=== PATIENT | male | born 2000 | race Caucasian/White ===

== ENCOUNTER 2022-10-11 17:09 | Emergency (ER) | payer MEDICAID, SELFPAY ==
[2022-10-11 17:10] VITALS: BP 145/84; PULSE 84; RESP 18; TEMP 36.6; O2SAT 100; BMI 21.2
[2022-10-11 18:18] VITALS: BP 124/78; PULSE 64; RESP 16; TEMP 36.6; O2SAT 100
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
== END 2022-10-11 18:29 | disposition home or self-care (01) ==
LOC: ED 18:19
PROVIDERS: Emergency Provider Student in an Organized Health Care Education/Training Program; Visit Provider Student in an Organized Health Care Education/Training Program
DX: L24.5 Irritant contact dermatitis due to other chemical products (principal); F17.210 Nicotine dependence, cigarettes, uncomplicated
CPT/HCPCS: 99283

== ENCOUNTER 2022-10-27 01:25 | Emergency (ER) | payer MEDICAID, SELFPAY ==
[2022-10-27 01:29] VITALS: BP 140/91; PULSE 84; RESP 18; TEMP 36.7; O2SAT 100
[2022-10-27 02:28] VITALS: RESP 16
[2022-10-27 03:00] VITALS: RESP 16
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
[2022-10-27 06:42] VITALS: PULSE 78; RESP 16; O2SAT 98
== END 2022-10-27 06:43 | disposition home or self-care (01) ==
PROVIDERS: Emergency Provider Emergency Medicine; Visit Provider Emergency Medicine
DX: F10.129 Alcohol abuse with intoxication, unspecified (principal); F17.210 Nicotine dependence, cigarettes, uncomplicated; F32.A Depression, unspecified
CPT/HCPCS: 36415; 82077; 99282

== ENCOUNTER 2022-11-30 01:20 | Emergency (ER) | payer MEDICAID, SELFPAY ==
[2022-11-30 01:21] VITALS: BP 130/85; PULSE 85; RESP 18; TEMP 36.3; O2SAT 99; BMI 20.3
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
[2022-11-30 01:52] LABS: Absolute Lymphocyte Count 2.12 X10^3/uL (0.83-4.51); Absolute Neutrophil Count 5.2 X10^3/uL (2.0-7.7); Basophil# 0.04 X10^3/uL; Basophil% 0.5 % (0-1); Eosinophil# 0.21 X10^3/uL; Eosinophils% 2.6 % (0-5); Hematocrit 42.9 % (40-54); Hemoglobin 13.8 g/dL (13.0-16.5); Lymphocyte # 2.12 X10^3/ul (0.83-4.51); Lymphocyte % 25.8 % (19-41); Mean Corp Hgb Conc 32.2 g/dL (32-36); Mean Corpuscular Hgb 31.3 pg (27.0-32.0); Mean Corpuscular Volume 97.3 fL (80-94); Mean Platelet Vol. 10.1 fl (6.2-12.0); Monocyte# 0.69 X10^3/uL; Monocyte% 8.4 % (0-10); NRBC Flagged by Analyzer 0 % (0-5); Neutrophil # 5.16 X10^3/uL (2.7-7.7); Neutrophil % 62.6 % (47-70); Platelet Count 206 K/mm3 (150-450); RBC Distribution Width SD 46.7 fl (35.1-43.9); Red Blood Count 4.41 M/mm3 (4.6-6.2); White Blood Count 8.2 K/mm3 (4.4-11.0)
--- NOTE | 2022-11-30 01:58 | ED.RN ---
Attempted to call and inform pt sister about pt status, per pt request, with no answer. Lia
[2022-11-30 02:07] LABS: Anion Gap 5 (5-15); BUN 12 mg/dL (7-18); BUN/Creat Ratio 20.7 RATIO (10-20); Calcium,Total 8.7 mg/dL (8.5-10.1); Chloride 108 mmol/L (98-107); Creatinine, Serum 0.58 mg/dL (0.70-1.30); EST Glomerular Filtration Rate 186 mL/min (>60); Est Glom Filt Rate - Afr Amer 225 mL/min (>60); Estimated Creatinine Clearance 171.62 ml/min; Glucose 137 mg/dL (74-106); Potassium 3.4 mmol/L (3.5-5.1); Sodium Level 140 mmol/L (136-145)
[2022-11-30 02:11] LABS: Amphetamine Urine VISTA NEGATIVE (<1000 ng/mL); Barbiturate Urine VISTA NEGATIVE (< 200 ng/mL); Benzodiazepine Urine VISTA NEGATIVE (< 200 ng/mL); Cocaine Urine VISTA NEGATIVE (< 300 ng/mL); Ecstacy Urine VISTA NEGATIVE (< 500 ng/mL); Methadone Urine VISTA NEGATIVE (< 300 ng/mL); PCP Urine VISTA NEGATIVE (< 25 ng/mL); THC Urine VISTA POSITIVE (< 50 ng/mL); Vista UDS pH Range 5
[2022-11-30 02:19] LABS: Alcohol, Blood (Medical)-Serum < 3.0 mg/dL
--- NOTE | 2022-11-30 04:43 | ED.RN ---
Report given to Catrina VILLARREAL at [facility].
[2022-11-30 06:50] VITALS: BP 121/74; PULSE 71; RESP 17; O2SAT 97
== END 2022-11-30 06:56 ==
PROVIDERS: Emergency Provider Emergency Medicine; Visit Provider Emergency Medicine
DX: R45.851 Suicidal ideations (principal); F17.210 Nicotine dependence, cigarettes, uncomplicated; F32.A Depression, unspecified; Z91.148 Patient's other noncompliance with medication regimen for other reason
CPT/HCPCS: 36415; 80048; 80307; 82077; 85025; 87811; 99284